=== PATIENT | female | born 1940 | race Caucasian/White ===

== ENCOUNTER → 2017-06-17 | Outpatient (CLI) | payer MEDICARE, OTHER | END | disposition home or self-care (01) | LOC: MAMMO 13:57 | DX: Z12.31 Encounter for screening mammogram for malignant neoplasm of breast (principal) ==

== ENCOUNTER → 2017-06-24 | Outpatient (CLI) | payer MEDICARE, OTHER | END | disposition home or self-care (01) | LOC: MAMMO 10:57 | DX: Z12.31 Encounter for screening mammogram for malignant neoplasm of breast (principal); N64.4 Mastodynia ==

== ENCOUNTER 2017-08-03 11:14 | Emergency (ER) | payer MEDICARE, OTHER ==
[~2017-08-03] VITALS: Ht 157.4 cm; Wt 95.3 kg
[2017-08-03 11:24] VITALS: BP 148/73
== END 2017-08-03 13:15 | disposition home or self-care (01) ==
LOC: ED 11:14
DX: M17.11 Unilateral primary osteoarthritis, right knee (principal)

== ENCOUNTER → 2017-08-06 | Outpatient (CLI) | payer MEDICARE, OTHER | END | disposition home or self-care (01) | LOC: MRI 08:49 | DX: S83.31XA Tear of articular cartilage of right knee, current, initial encounter (principal); X58.XXXA Exposure to other specified factors, initial encounter; Y93.89 Activity, other specified; Y92.89 Other specified places as the place of occurrence of the external cause; Y99.8 Other external cause status; M25.461 Effusion, right knee ==

== ENCOUNTER → 2018-02-10 | Day surgery (SDC) | payer MEDICARE, OTHER ==
[~2018-02-10] VITALS: Ht 162.5 cm; Wt 97.1 kg
[~2018-02-10] MED LIST: ASPIRIN ADULT L81 M2 PO; ATENOLOL50 M1 PO; ATORVASTATIN CA10 M1 PO; FISH OIL 1,0001 EAC2 PO; GLIPIZIDE5 MG PO; HYDROCHLOROTHIA25 M1 PO; LEVOTHYROXINE125 MCG PO; TRAD5TAB1 PO; TRULICITY0.75 MG/0. SC; VITAMIN D31000 UNI1 PO
--- NOTE | ~2018-02-10 | PROC NOTE ---
[place], [place] PROCEDURE NOTE NAME: LA NENA GALARZA UNIT #: [id number] ROOM: DOCTOR: RICHARD STANTON MD BIRTHDATE: [birth year] DOS: 02/10/2018 PREOPERATIVE DIAGNOSIS: Lower gastrointestinal bleed. POSTOPERATIVE DIAGNOSIS: Pancolonic diverticulosis, sigmoid polyp x 1, internal hemorrhoids. PROCEDURE: Colonoscopy with polypectomy x 1. ENDOSCOPIST: Richard Stanton MD ENVIRONMENTAL DESIGNER: ANDRZEJ. ANESTHESIA: MAC. INDICATIONS: This is a 77-year-old lady with a strong family history of colon cancer in the family and no previous history of colonoscopy who is here for investigation of lower GI bleed. The procedure and its complications were explained to the patient in detail preoperatively. Complications that were discussed included but were not limited to bleeding, colon perforation, missed lesions and prolonged pain. She agreed to proceed. DESCRIPTION OF PROCEDURE: After identifying the patient, the patient was brought to the endoscopy suite and placed in the left lateral position. After IV sedation was administered, a timeout procedure was called and a digital rectal exam was performed. This was within normal limits and there was no bleeding. There was no blood seen in the examining finger. At this point, an adult colonoscope was introduced into the anal canal and advanced sequentially into the rectum, sigmoid colon, descending colon, transverse colon, ascending colon up to the cecum. There was found to be a severe colonic diverticulosis mainly in the sigmoid colon and transverse colon. Upon reaching the cecum, the scope was withdrawn. Total withdrawal time was approximately 10 minutes. Approximately 20 cm from the anal verge, a large friable polyp was visualized, which was removed with the help of a snare and removed in its entirety and sent for histopathological diagnosis. The scope was reintroduced in order to visualize the biopsy site and that was found to be clean without any active bleeding. Scope was then withdrawn and the patient was brought back to the recovery in a stable fashion. Based on these findings, the patient is recommended to have further colonoscopy in the next 3-5 years. These findings were discussed with the patient's in the recovery room. [place], [place] PROCEDURE NOTE NAME: LA NENA GALARZA UNIT #: [id number] ROOM: DOCTOR: RICHARD STANTON MD BIRTHDATE: [birth year] Richard Stanton MD CM:NUVIA:PROCEDURE NOTE [id number] RICHARD STANTON MD
[2018-02-10 08:15] VITALS: BP 143/69
[2018-02-10 11:07] VITALS: BP 96/56
[2018-02-10 11:22] VITALS: BP 122/64
[2018-02-10 11:37] VITALS: BP 121/60
== END | disposition home or self-care (01) ==
LOC: SDC 02-09 10:15
DX: K63.5 Polyp of colon (principal); K57.30 Diverticulosis of large intestine without perforation or abscess without bleeding; K64.8 Other hemorrhoids; I10 Essential (primary) hypertension; E11.9 Type 2 diabetes mellitus without complications; E07.9 Disorder of thyroid, unspecified; N28.9 Disorder of kidney and ureter, unspecified; Z98.42 Cataract extraction status, left eye; Z98.41 Cataract extraction status, right eye; Z96.652 Presence of left artificial knee joint; Z98.890 Other specified postprocedural states; Z98.51 Tubal ligation status; Z82.49 Family history of ischemic heart disease and other diseases of the circulatory system; Z79.899 Other long term (current) drug therapy

== ENCOUNTER → 2018-11-22 | Outpatient (CLI) | payer MEDICARE, OTHER | END | disposition home or self-care (01) | LOC: RESCLI 00:57 | DX: I12.9 Hypertensive chronic kidney disease with stage 1 through stage 4 chronic kidney disease, or unspecified chronic kidney disease (principal); E11.22 Type 2 diabetes mellitus with diabetic chronic kidney disease; N18.9 Chronic kidney disease, unspecified; E78.5 Hyperlipidemia, unspecified; E03.9 Hypothyroidism, unspecified; E55.9 Vitamin D deficiency, unspecified; Z79.899 Other long term (current) drug therapy ==

== ENCOUNTER → 2019-01-25 | Outpatient (CLI) | payer MEDICARE, OTHER ==
[~2019-01-25] MED LIST changes: +NORCO 5-325 TA1 EACH PO
== END | disposition home or self-care (01) ==
LOC: CT 13:41
DX: S00.03XD Contusion of scalp, subsequent encounter (principal); S09.90XD Unspecified injury of head, subsequent encounter; X58.XXXD Exposure to other specified factors, subsequent encounter; I12.9 Hypertensive chronic kidney disease with stage 1 through stage 4 chronic kidney disease, or unspecified chronic kidney disease; E11.22 Type 2 diabetes mellitus with diabetic chronic kidney disease; N18.9 Chronic kidney disease, unspecified; E03.9 Hypothyroidism, unspecified; E78.5 Hyperlipidemia, unspecified; E86.0 Dehydration; M54.16 Radiculopathy, lumbar region

== ENCOUNTER 2019-02-13 12:55 | Inpatient (IN) | payer MEDICARE, OTHER ==
[~2019-02-13] VITALS: Ht 160 cm; Wt 86.4 kg
--- NOTE | ~2019-02-13 | PR ---
[place], [place] PROGRESS NOTE NAME: LA NENA GALARZA [facility] #: [id number] UNIT #: [id number] ROOM: 405 DOCTOR: HERMES REAL MDGODWIN BIRTHDATE: [birth year] DOS: 02/15/2019 SUBJECTIVE: She has been noted with some pain, which is reported in the right shoulder. She has a biopsy of the liver completed yesterday also had a CT scan of the abdomen and pelvis done yesterday as well with contrast. She has not reported any symptoms of fever or chills. There were no symptoms of coughing or acute shortness of breath was noted. Really uncomfortable feeling of pain in the shoulder. The pain was reported starting from yesterday evening. She has not been noted any symptoms of abdominal pain. Denies symptoms of nausea, vomiting, diarrhea, hematemesis, melena. Remaining systems reviewed, they were noted negative. OBJECTIVE: VITAL SIGNS: Blood pressure 122/58, the respiratory rate of 18, heart rate 70, temperature normal. Pulse oxygen saturation at rest on room air was noted as 94% saturation. HEENT: Examination shows head was atraumatic. Eyes nonicterus. NECK: Supple. CARDIOVASCULAR: S1, S2 audible. LUNGS: Noted without any wheeze or crackles. ABDOMEN: Moderate obesity. Bowel sounds present. There was no acute tenderness. CENTRAL NERVOUS SYSTEM: In general were noted intact. LABORATORY DATA: CBC today noted with WBC count 11.8, hemoglobin 11.9, platelet count were normal. CT scan of the abdomen and pelvis, which are reported by the radiologist shows finding of large mass lesion in the left lobe of the liver with additional small lesions. Peritoneal carcinomatosis was also reported. A relative soft tissue fullness at the junction of the pancreatic head and tail was also reported. The neoplastic process cannot be completely excluded. IMPRESSION: The patient will be currently noted with metastatic cancer. The origin of the tumor was not clear, may be related to the pancreas or other problems including mass suspected in the lung. Peritoneal carcinomatosis noted as well as pulmonary nodule would be considered malignant process. Referred pain, the patient noted right shoulder, which need to be monitored, complications such as a subcapsular hematoma after the biopsy of the liver to be kept in mind. Pain management at this time will be continued. The pain remained persistent, consider doing an ultrasound of the liver to exclude such complications post-biopsy related. In the meantime, other therapy, plan of management to be continued. Care plan and management discussed with Ava Chaidez. [place], [place] PROGRESS NOTE NAME: LA NENA GALARZA UNIT #: [id number] ROOM: 405 DOCTOR: GODWIN OLIVER MD BIRTHDATE: [birth year] GODWIN MIRZA MD CM:PNTRANS [id number] GODWIN REAL MD 02/15/191339 interface
--- NOTE | ~2019-02-13 | PR ---
[employer] [place], [place] PROGRESS NOTE NAME: LA NENA GALARZA UNIT #: [id number] ROOM: 405 DOCTOR: HERMES REAL MD,GODWIN BIRTHDATE: [birth year] DOS: 02/16/2019 SUBJECTIVE: She has been noted comfortable at this time, resting in the bed. The patient's pain in the shoulder, in the right side seemed to be improved. There were no symptoms of coughing, sputum expectoration or any chest pain, stated by the patient. There were no symptoms of cough. OBJECTIVE: VITAL SIGNS: For the patient which were recorded shows as temperature 99.7 degrees Fahrenheit at midnight. This morning, temperature not available. Blood pressure recorded 110/60. Heart rate 70 at 4:00 a.m. Respiratory rate 20 at midnight. Pulse oxygen saturation recorded as 95%, this morning on room air. HEENT: Examination shows head was atraumatic. Eyes nonicterus. NECK: Supple. CARDIOVASCULAR: S1, S2 audible. LUNGS: Noted without any wheezing or crackles. ABDOMEN: Soft, nontender. Bowel sounds present. EXTREMITIES: No new change. LABORATORY DATA: The patient's CBC today was noted as normal. Stable hemoglobin. IMPRESSION: Status post biopsy of the liver mass with peritoneal carcinomatosis. Metastatic malignancy of the abdomen was suspected with pulmonary nodules as well. PLAN OF MANAGEMENT: No change in pulmonary standpoint. Discharge planning per primary care physician. Continue current therapy, plan of care at this time. Supportive care. GODWIN MIRZA MD CM:PNTRANS [id number] GODWIN REAL MD 02/16/19 1055 interface
--- NOTE | ~2019-02-13 | CON ---
[place], [place] REPORT OF CONSULTATION NAME: LA NENA GALARZA UNIT #: [id number] ROOM: 405 DOCTOR: JOVANNI LU MD BIRTHDATE: [birth year] DOS: 02/15/2019 HISTORY OF PRESENT ILLNESS: This is a 78-year-old patient who has presented with initial shortness of breath and falling episode that she is trying to attribute to her symptomatology, so she has been worked up and surprise findings has been noticed as I hear through nursing staff and the CT scan of the abdomen, confirmed multiple masses. Liver biopsy has been obtained. Her urine cultures are pending. She has had a colonoscopy 3 years ago. Her H and H are 11 and 37. Today, comprehensive metabolic panel, electrolyte balance, liver function test, and alkaline phosphatase 145. Blood cultures appeared to be no growth. CT scan of the abdomen reviewed. Large mass in the left hepatic lobe, metastatic lesion highly suspected, bilateral pulmonary nodules. Neoplastic process was not excluded; therefore, biopsies have been considered, mild pancreatic duct dilation as well, has been noticed and radiologic changes. CTA of the chest; however, no evidence of pulmonary embolus, large infiltrative masses in the hepatic anatomy was reconfirmed. PAST MEDICAL HISTORY: Associated with hypothyroidism, hypertension, DJD, diabetes, renal insufficiency, and now surprise liver mass, recently found. PAST SURGICAL HISTORY: Tonsillectomy, left total knee. SOCIAL HISTORY: Nonsmoker and nonalcohol consumer. FAMILY HISTORY: Noncontributory. MEDICATIONS: List has been reviewed. ALLERGIES: No known medication. REVIEW OF SYSTEMS: HEENT: Denies double vision, blurred vision. RESPIRATORY: Denies acute shortness of breath. CARDIOVASCULAR: Denies acute chest pain. DIGESTIVE SYSTEM: No hematemesis, no hematochezia. She tells me that she has recently 2 years ago plus has had a colonoscopy done. PHYSICAL EXAMINATION: VITAL SIGNS: Stable. HEENT: Benign. NECK: Supple, no thyromegaly, no cervical lymphadenopathy. CHEST: Symmetric anatomy, equal expansion. No wheeze, no rhonchi. HEART: Normal sinus rhythm, no gallop, no murmur. ABDOMEN: Soft. No hepato-organomegaly. Bowel sounds present. EXTREMITIES: No cyanosis, no pedal edema. NEUROLOGIC: Alert, oriented to time, place, and person. Labs, reviewed. Records, reviewed. IMPRESSION: Liver mass, suspected metastatic lesion since already biopsies have [place], [place] REPORT OF CONSULTATION NAME: LA NENA GALARZA UNIT #: [id number] ROOM: 405 DOCTOR: ALY SANDERS,JOVANNI BIRTHDATE: [birth year] been done. We are going to await gold standard for diagnosis, i.e., pathology report and should we be interested to sort out the source of metastasis at such a time, I would recommend endoscopic evaluation i.e., esophageal versus colonic depending on the biopsies of course. Other adjunctive findings as reported in past medical and surgical history. Thank you very much indeed. JOVANNI LU MD CM:CONSTR:REPORT OF CONSULTATION 1950 02/22/19 0754 interface
--- NOTE | ~2019-02-13 | EKG ---
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
--- NOTE | ~2019-02-13 | CON ---
[place], [place] REPORT OF CONSULTATION [id number] UNIT #: [id number] ROOM: 405 DOCTOR: GODWIN OLIVER MD BIRTHDATE: [birth year] DOS: 02/14/2019 PULMONARY CONSULTATION, EVALUATION AND MANAGEMENT REASON FOR CONSULTATION: For assessment of the pulmonary nodules noted on CT scan of the chest and shortness of breath. HISTORY OF PRESENT ILLNESS: The patient is a 78-year-old white female stated that she has fell down at home in 12/2018 in a bedroom. She states that she hit her head with the table edge in the room. She stated that she had not sustained any major injuries. The patient noted debility and undergoing physical therapy in the [facility]. She has been complaining of increased shortness of breath, which has been present for the past couple of weeks, which has noted gradual worsening. She denies symptoms of dizziness, headache, or diplopia. The patient came into the Emergency Room where she has been assessed, where she has been noted abnormal CT. The patient has been noted with elevation of D-dimer. CTA of the chest was also done that has been reported with findings of pulmonary nodule and upper portion of the abdomen reported with findings of liver mass as well. The patient stated shortness of breath has been noted better since yesterday. The CTA of the chest has excluded any pulmonary embolism. She denies symptoms of chest pain with these symptoms. Denies symptoms of wheezing. Denies symptoms of any known chronic pulmonary disease from the past and take any regular respiratory medications. The patient denies any heart problems as well. REVIEW OF SYSTEMS: CONSTITUTIONAL: Fatigue and tiredness reported. Denies symptoms of fever or chills. EYES: Denies burning, redness, or tenderness. EARS, NOSE, AND THROAT SYMPTOMS: No sore throat, hoarseness, otalgia, postnasal drainage or epistaxis. CARDIOVASCULAR: Denies angina pain, edema or pain of the lower extremities. GASTROINTESTINAL: Denies dysphagia, nausea, vomiting, diarrhea, abdominal pain, hematemesis, melena, or hematochezia. SKIN: Denies abnormal lesions or rashes. CENTRAL NERVOUS SYSTEM: No dizziness, headache, diplopia, syncopal episodes. The patient has been noted recent head trauma over a month ago. Remaining systems were reviewed and they were noted all negative. PAST MEDICAL HISTORY: 1. Essential hypertension. 2. Moderate obesity. 3. Hypothyroidism. 4. Hypercholesterolemia. 5. Osteoarthritis. 6. Diabetes mellitus. 7. Chronic kidney disease stage 3. PAST SURGICAL HISTORY: [place], [place] REPORT OF CONSULTATION NAME: LA NENA GALARZA UNIT #: [id number] ROOM: 405 DOCTOR: GODWIN OLIVER MD BIRTHDATE: [birth year] 1. Reported with past EGD and colonoscopy. 2. Left total knee replacement. 3. Tonsillectomy. SOCIAL HISTORY: The patient is . She has one child, lives at home. Denies history of alcohol use or illicit drug use. Denies any history of tobacco use as well. FAMILY HISTORY: The patient's father with complication of colon cancer at 72 years old. Mother at the age of 6262 years old with complication related to myocardial infarction. HOME MEDICATIONS: Listed on admission as aspirin, atenolol, Lipitor, vitamin D, duloxetine, glipizide, hydrochlorothiazide, levothyroxine, Tradjenta and omega 3 fatty acids. ACTIVE MEDICATIONS: Which were administered this hospitalization were noted as Lovenox for DVT prophylaxis, Lipitor, Tradjenta, aspirin, glipizide, levothyroxine, atenolol, sliding scale insulin coverage. DRUG ALLERGIES: Noted as no known drug allergies. PHYSICAL EXAMINATION: GENERAL: This is a 78-year-old female patient noted currently awake and alert without any distress. Height of 5 feet 2 inches, weight 190 pounds, BMI 33.7. VITAL SIGNS: The patient has a normal temperature____ hospitalization, respiratory rate 18-20, heart rate 74-85, blood pressure 110/60-114/52. Pulse ox saturation at rest on room air was 96% saturation recorded. HEENT: Moderate obesity. Head was atraumatic. Eyes nonicterus. NECK: Supple. CARDIOVASCULAR: S1, S2 is audible. LUNGS: Noted without any wheezing or crackles at the present time. ABDOMEN: Soft. Moderate obesity. Bowel sounds present. EXTREMITIES: Without edema, clubbing, cyanosis. MUSCULOSKELETAL: Without acute deformities. CENTRAL NERVOUS SYSTEM: Intact. No gross focal neurologic deficit. Cranial nerves 2-12 intact. LABORATORY DATA: The D-dimer was noted 1.95 yesterday in the Emergency Room, troponin normal. Lactic acid 2.3, follow up lactic acid 1.6. The troponin other 2 sets yesterday repeated and they were noted all normal. CMP that was done this morning BUN 25, creatinine 1.02, glucose 129. Sodium 135, potassium 3.1. CBC that was done this morning noted as normal. CTA of the chest done yesterday on admission was reviewed shows multiple nodules present in the lung, mostly in the subpleural distribution area, the patient index nodule noted as 15 mm in the size in the left upper lobe. ____ lymph nodes were noted. In addition to that, there was no finding of a large mass noted in the left lobe of the liver as well. IMPRESSION: [place], [place] REPORT OF CONSULTATION NAME: LA NENA GALARZA UNIT #: [id number] ROOM: 405 DOCTOR: GODWIN OLIVER MD BIRTHDATE: [birth year] 1. The patient will be currently admitted to the hospital with symptoms of shortness of breath may be related to muscle decondition. Etiology was not clear completely at this time. The patient's physical examination was noted without any evidence of wheezing or other symptom. On the chest auscultation, breath sounds were noted as normal. 2. Incidental finding of liver mass with multiple bilateral nodules, which has been noted in the lungs bilaterally index nodule in the right upper lobe. A small possible nonpathological lymph node noted in the mediastinal structure as well. Possible consideration of primary malignancy arising from the liver on GI tract with metastatic disease to the lung would be considered very strongly. 3. History of moderate obesity as well. 4. Recent fall, currently undergoing physical therapy at the [facility]. The CT scan of the head on 01/25/2019 which was done at that time of fall at home. The patient does not show any abnormality for the patient. PLAN OF MANAGEMENT: The patient has already been ordered CT scan of the abdomen and pelvis that needs to be done. Possible consideration of GI consultation as well to assess. GI malignancy, metastatic disease to the lung. Certainly, the differential soft nonmalignant process with pulmonary nodule including sarcoidosis and other illnesses cannot be completely excluded. The patient was also noted electrolyte imbalance on admission, the seemed to be resolved at this time including hypokalemia. DVT prophylaxis to be continued. Other therapy, plan of management as well. Nonspecific elevation of D-dimer etiology was unclear, malignant process at least has been excluded. Consideration of a workup patient's cardiac disease of the shortness of breath remains persistent should be done including Cardiology assessment and echocardiogram. Thank you for allowing me to participate in the care of this patient. GODWIN MIRZA MD CM:CONSTR:REPORT OF CONSULTATION 1009 02/14/19 1525 interface
--- NOTE | ~2019-02-13 | EKG ---
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
--- NOTE | ~2019-02-13 | EKG ---
[place], [place] ELECTROCARDIOGRAM REPORT NAME: LA NENA GALARZA UNIT #: [id number] ROOM: 405 DOCTOR: CHETAN DRAFT REPORT BIRTHDATE: [birth year] [facility] Test Date: 2019-02-13 Test Time: 12:56:51 Pat Name: LA NENA GALARZA Department: Room: 405 Gender: F Credit Cashier: : 1940 Requested By: MELISSA VEGA Order Number: [id number] Reading MD: Bright Estes Measurements Intervals [place] Rate: 86 P: 6 MN: 155 QRS: -35 QRSD: 114 T: 6 QT: 384 QTc: 460 Interpretive Statements Sinus rhythm Ventricular premature complex Abnormal R-wave progression, late transition Left ventricular hypertrophy Borderline T abnormalities, inferior leads No previous ECG available for comparison Electronically Signed On 02-15-2019 9:49:23 PDT by Bright Estes CM:EKGRPT:ELECTROCARDIOGRAM REPORT [id number] MELISSA BENTON DRAFT REPORT MELISSA VEGA MD
--- NOTE | ~2019-02-13 | EKG ---
[place], [place] ELECTROCARDIOGRAM REPORT NAME: LA NENA GALARZA UNIT #: [id number] ROOM: 405 DOCTOR: CHETAN DRAFT REPORT BIRTHDATE: [birth year] [facility] Test Date: 2019-02-13 Test Time: 16:57:18 Pat Name: LA NENA GALARZA Department: Room: 405 Gender: F Intensive Care Unit Nurse: : 1940 Requested By: MELISSA VEGA Order Number: [id number] Reading MD: Bright Estes Measurements Intervals [place] Rate: 77 P: 22 [place]: 171 QRS: -37 QRSD: 113 T: -1 QT: 403 QTc: 457 Interpretive Statements Sinus rhythm Abnormal R-wave progression, late transition Left ventricular hypertrophy Baseline wander in lead(s) V4 No previous ECG available for comparison Electronically Signed On 02-15-2019 9:50:46 PDT by Bright Estes CM:EKGRPT:ELECTROCARDIOGRAM REPORT [id number] MELISSA BENTON DRAFT REPORT
[~2019-02-13 12:55] MED LIST changes: -NORCO 5-325 TA1 EACH PO
[2019-02-13 13:03] VITALS: BP 110/60
[2019-02-13 13:28] LABS: BASO % 0.3 % (0.0-1.0); EOS # 0.3 10*3/uL (0.0-0.4); EOS % 2.4 % (1.0-4.0); HEMATOCRIT 39.8 % (37.0-47.0); HEMOGLOBIN 12.3 g/dl (12.0-16.0); LYMPH # 0.8 10*3/uL (1.3-4.4); LYMPH % 6.5 % (27.0-41.0); MEAN CELL VOLUME 87.3 fl (81.0-99.0); MEAN CORPUSCULAR HGB CONC 30.9 g/dl (33.0-37.0); MONO # 0.8 10*3/uL (0.1-1.0); MONO % 6.8 % (3.0-9.0); NEUT # 9.9 10*3/uL (2.3-7.9); NEUT % 83.2 % (47.0-73.0); PLATELET COUNT AUTOMATED 310 10*3/uL (130-400); RED BLOOD COUNT 4.56 10*6/uL (4.10-5.10); RED CELL DISTRI WIDTH 14.2 % (0-14.5); WHITE BLOOD COUNT 11.9 10*3/uL (4.8-10.8)
[2019-02-13 13:39] LABS: ACT PARTIAL THROMBO TIME 25.9 SECONDS (20.0-32.1)
[2019-02-13 13:44] LABS: ALBUMIN 2.8 gm/dl (3.1-4.5); ALKALINE PHOSPHATASE 162 U/L (45-117); BUN 26 mg/dl (7-24); CHLORIDE 97 mmol/L (98-107); CREATININE 1.53 mg/dL (0.55-1.02); POTASSIUM 3.7 mmol/L (3.5-5.1); SGOT/AST 26 IU/L (3-35); SGPT/ALT 15 U/L (12-78); SODIUM 134 mmol/L (136-145); TOTAL PROTEIN 7.4 gm/dL (6.4-8.2)
[2019-02-13 13:45] LABS: TROPONIN I < 0.015 ng/ml (<0.045)
[2019-02-13 14:47] VITALS: BP 109/58
[2019-02-13 15:00] VITALS: BP 115/68
[2019-02-13 16:00] VITALS: BP 115/68
[2019-02-13 20:00] VITALS: BP 102/68
[2019-02-14] VITALS: BP 114/52
[2019-02-14 00:50] LABS: BILIRUBIN NEGATIVE (NEGATIVE); BLOOD NEGATIVE (NEGATIVE); CLARITY SL CLOUDY (CLEAR); COLOR YELLOW (YELLOW); GLUCOSE NEGATIVE (NEGATIVE); KETONE NEGATIVE (NEGATIVE); LEUKO ESTERASE 1+ (NEGATIVE); NITRITE NEGATIVE (NEGATIVE); PH 5.5 (5.0-9.0)
[2019-02-14 00:56] LABS: EPITHELIAL CELLS 35-40; WBC 21-30 wbc/hpf (0-5)
[2019-02-14 01:03] LABS: BACTERIA TRACE
[2019-02-14 06:21] LABS: ALBUMIN 2.5 gm/dl (3.1-4.5); ALKALINE PHOSPHATASE 134 U/L (45-117); BUN 25 mg/dl (7-24); CHLORIDE 100 mmol/L (98-107); CHOLESTEROL 108 mg/dL (<200); CREATININE 1.02 mg/dL (0.55-1.02); FREE T4 1.29 ng/dl (0.76-1.46); HDL CHOLESTEROL 29 mg/dl (40-60); LDL CHOLESTEROL 59 mg/dL (9-159); PHOSPHOROUS 3.6 mg/dL (2.5-4.9); POTASSIUM 3.1 mmol/L (3.5-5.1); SGOT/AST 22 IU/L (3-35); SGPT/ALT 12 U/L (12-78); SODIUM 135 mmol/L (136-145); TOTAL PROTEIN 6.4 gm/dL (6.4-8.2); TRIGLYCERIDES 99 mg/dl (<150); VLDL CHOLESTEROL 20 mg/dL (6-40)
[2019-02-14 06:26] LABS: THYROID STIM HORMONE (HS) 0.496 uIU/ml (0.358-4.75)
[2019-02-14 06:46] LABS: BASO # 0.1 10*3/uL (0.0-0.1); BASO % 0.6 % (0.0-1.0); EOS # 0.5 10*3/uL (0.0-0.4); EOS % 4.4 % (1.0-4.0); HEMATOCRIT 36.3 % (37.0-47.0); HEMOGLOBIN 11.3 g/dl (12.0-16.0); LYMPH # 1.2 10*3/uL (1.3-4.4); LYMPH % 11.6 % (27.0-41.0); MEAN CELL VOLUME 85.8 fl (81.0-99.0); MEAN CORPUSCULAR HGB 26.7 pg (27.0-31.0); MEAN CORPUSCULAR HGB CONC 31.1 g/dl (33.0-37.0); MEAN PLATELET VOLUME 11.4 fl (9.6-12.3); MONO # 0.9 10*3/uL (0.1-1.0); MONO % 8.7 % (3.0-9.0); NEUT # 7.9 10*3/uL (2.3-7.9); PLATELET COUNT AUTOMATED 288 10*3/uL (130-400); RED BLOOD COUNT 4.23 10*6/uL (4.10-5.10); RED CELL DISTRI WIDTH 14.2 % (0-14.5); WHITE BLOOD COUNT 10.7 10*3/uL (4.8-10.8)
[2019-02-14 07:40] LABS: VITAMIN D, 25-HYDROXY 36.2 ng/mL (30-100)
[2019-02-14 08:00] VITALS: BP 114/60
[2019-02-14 12:00] VITALS: BP 92/50
[2019-02-14 16:00] VITALS: BP 103/50
[2019-02-14 20:00] VITALS: BP 118/61
[2019-02-15] VITALS: BP 111/64
[2019-02-15 07:41] VITALS: BP 122/58
[2019-02-15 09:41] LABS: BASO # 0.1 10*3/uL (0.0-0.1); BASO % 0.5 % (0.0-1.0); EOS # 0.3 10*3/uL (0.0-0.4); EOS % 2.6 % (1.0-4.0); HEMATOCRIT 37.7 % (37.0-47.0); HEMOGLOBIN 11.9 g/dl (12.0-16.0); LYMPH # 0.7 10*3/uL (1.3-4.4); LYMPH % 6.3 % (27.0-41.0); MEAN CELL VOLUME 85.9 fl (81.0-99.0); MEAN CORPUSCULAR HGB 27.1 pg (27.0-31.0); MEAN CORPUSCULAR HGB CONC 31.6 g/dl (33.0-37.0); MEAN PLATELET VOLUME 11.6 fl (9.6-12.3); MONO % 8.3 % (3.0-9.0); NEUT # 9.6 10*3/uL (2.3-7.9); NEUT % 81.7 % (47.0-73.0); PLATELET COUNT AUTOMATED 306 10*3/uL (130-400); RED BLOOD COUNT 4.39 10*6/uL (4.10-5.10); RED CELL DISTRI WIDTH 14.2 % (0-14.5); WHITE BLOOD COUNT 11.8 10*3/uL (4.8-10.8)
[2019-02-15 09:56] LABS: ALBUMIN 2.7 gm/dl (3.1-4.5); ALKALINE PHOSPHATASE 145 U/L (45-117); BUN 19 mg/dl (7-24); CHLORIDE 97 mmol/L (98-107); CREATININE 1.01 mg/dL (0.55-1.02); POTASSIUM 3.5 mmol/L (3.5-5.1); SGOT/AST 22 IU/L (3-35); SGPT/ALT 13 U/L (12-78); SODIUM 133 mmol/L (136-145); TOTAL PROTEIN 6.8 gm/dL (6.4-8.2)
[2019-02-15 12:00] VITALS: BP 90/56
[2019-02-15 16:00] VITALS: BP 112/53
[2019-02-15 20:00] VITALS: BP 122/62
[2019-02-16] VITALS: BP 102/56; BP 99/49
[2019-02-16 07:38] LABS: BASO % 0.4 % (0.0-1.0); EOS # 0.4 10*3/uL (0.0-0.4); HEMOGLOBIN 11.3 g/dl (12.0-16.0); LYMPH % 9.6 % (27.0-41.0); MEAN CELL VOLUME 85.8 fl (81.0-99.0); MEAN CORPUSCULAR HGB 26.2 pg (27.0-31.0); MEAN CORPUSCULAR HGB CONC 30.5 g/dl (33.0-37.0); MEAN PLATELET VOLUME 11.6 fl (9.6-12.3); MONO % 8.9 % (3.0-9.0); NEUT # 8.2 10*3/uL (2.3-7.9); NEUT % 76.5 % (47.0-73.0); PLATELET COUNT AUTOMATED 287 10*3/uL (130-400); RED BLOOD COUNT 4.31 10*6/uL (4.10-5.10); RED CELL DISTRI WIDTH 14.1 % (0-14.5); WHITE BLOOD COUNT 10.7 10*3/uL (4.8-10.8)
[2019-02-16 08:00] VITALS: BP 110/60
[2019-02-16] MEDS ORDERED: NORCO 5-325 TA1 EACH PO (09:09)
== END 2019-02-16 10:42 | disposition home or self-care (01) | DRG 204 ==
LOC: ED 12:55 → EDHOLD 14:33 → 4E 14:33
PROVIDERS: Emergency Medicine; Registered Nurse; ADMIT Internal Medicine
PROC: 0FB23ZX Excision of Left Lobe Liver, Percutaneous Approach, Diagnostic (ICD-10-PCS; principal; 2019-02-14)
DX: R91.8 Other nonspecific abnormal finding of lung field (principal); N17.0 Acute kidney failure with tubular necrosis; E87.2 Acidosis; K21.9 Gastro-esophageal reflux disease without esophagitis; E11.65 Type 2 diabetes mellitus with hyperglycemia; E11.22 Type 2 diabetes mellitus with diabetic chronic kidney disease; E78.00 Pure hypercholesterolemia, unspecified; E66.9 Obesity, unspecified; N18.3 Chronic kidney disease, stage 3 (moderate); I12.9 Hypertensive chronic kidney disease with stage 1 through stage 4 chronic kidney disease, or unspecified chronic kidney disease; E03.9 Hypothyroidism, unspecified; E87.8 Other disorders of electrolyte and fluid balance, not elsewhere classified; R16.0 Hepatomegaly, not elsewhere classified; Z79.84 Long term (current) use of oral hypoglycemic drugs; Z79.4 Long term (current) use of insulin; Z82.49 Family history of ischemic heart disease and other diseases of the circulatory system; Z80.9 Family history of malignant neoplasm, unspecified; Z68.35 Body mass index [BMI] 35.0-35.9, adult

== ENCOUNTER 2019-03-01 18:03 | Emergency (ER) | payer MEDICARE, OTHER ==
[~2019-03-01] VITALS: Ht 160 cm; Wt 86.6 kg
[~2019-03-01 18:03] MED LIST changes: +NORCO 5-325 TA1 EACH PO
[2019-03-01 18:05] VITALS: BP 121/59
== END 2019-03-01 20:24 | disposition home or self-care (01) ==
LOC: ED 18:03
DX: K59.00 Constipation, unspecified (principal); Z79.899 Other long term (current) drug therapy; Z79.82 Long term (current) use of aspirin